=== PATIENT | male | born 1965 | race Caucasian/White ===

== ENCOUNTER → 2017-09-14 | Outpatient (CLI) | payer OTHER | END | disposition home or self-care (01) | LOC: PCVCIMAG 11:35 | DX: I25.10 Atherosclerotic heart disease of native coronary artery without angina pectoris (principal); E83.59 Other disorders of calcium metabolism; R06.02 Shortness of breath; E78.00 Pure hypercholesterolemia, unspecified; R94.31 Abnormal electrocardiogram [ECG] [EKG] | CPT/HCPCS: 80061; 93325; 93351 ==